=== PATIENT | male | born 1975 | race Caucasian/White ===

== ENCOUNTER 2017-06-26 12:54 | Emergency (ER) | payer OTHER ==
[~2017-06-26] VITALS: Ht 170.2 cm; Wt 97.7 kg
[2017-06-26 13:03] VITALS: TEMP 36.5; Ht 170.2 cm; Wt 97.7 kg
[2017-06-26] MEDS ORDERED: SODIUM CHLORIDE 0.9% 1000ML 1,000 ML IV STA (13:07)
--- NOTE | 2017-06-26 13:17 | EMERGENCY ROOM VISIT NOTE ---
History First contact with patient: 13:07 Chief Complaint: ABDOMINAL PAIN Stated Complaint: SEVERE ABDOMINAL PAIN History of Present Illness The patient is a 41 year old male who presents to the Emergency Room with complaints of RLQ abdominal pain. The patient also notes the following associated symptoms, nausea and vomiting, mild BAR[place], diaphoresis, and diarrhea. This started this morning at 0300 and is constant. The patient has tried zofran and phenergan relieving factors. The pain spiked to a 8 but currently is a 4/10. Pt denies LOC, fevers, chills,visual changes, neck pain, chest pain, breathing difficulties, back pain, melena, hematochezia, urinary symptoms, numbness, weakness, lymphadenopathy, rash, or other complaints. Review of Systems See HPI for pertinent positives and negatives. A total of ten systems were reviewed and were otherwise negative. Past Medical/Surgical History Surgical Problems: (1) S/P hernia repair Social History Smoking Status: Never Smoker Current/Historical Medications No Active Prescriptions or Reported Meds Physical Exam Vital Signs Date Time Temp Pulse Resp B/P (MAP) Pulse Ox O2 Delivery O2 Flow Rate FiO2 06/26/17 17:00 118 16 137/76 93 06/26/17 15:50 112 16 93 Room Air 06/26/17 14:50 108 26 138/100 93 Room Air 06/26/17 13:30 102 26 147/103 95 Room Air 06/26/17 13:28 98 06/26/17 13:03 36.5 86 16 154/106 100 Room Air Physical Exam GENERAL: Awake, alert, well-appearing, in no distress HENT: Normocephalic, atraumatic. Oropharynx unremarkable. EYES: Normal conjunctiva. Sclera non-icteric. NECK: Supple. No nuchal rigidity. FROM. No masses. RESPIRATORY: Clear to auscultation. No wheezes. No rales. Normal respiratory effort. CARDIAC: Normal rate. Normal rhythm. No murmurs. No rubs. Extremities warm and well perfused. Pulses equal. No JVD. GI: Soft, non-distended. RLQ tenderness to palpation. No rebound or guarding. No masses. RECTAL: Deferred. MUSCULOSKELETAL: Atraumatic. Chest examination reveals no tenderness. The back is symmetrical on inspection without obvious abnormality. There is no CVA tenderness to palpation. No joint edema. LOWER EXTREMITIES: Calves are equal size bilaterally and non-tender. No edema. No discoloration. NEURO: Normal sensorium. No sensory or motor deficits noted. SKIN: No rash or jaundice noted. Medical Decision & Procedures Laboratory Results 06/26/17 13:20 Red Blood Count 5.80, Mean Corpuscular Volume 86.9, Mean Corpuscular Hemoglobin 31.0, Mean Corpuscular Hemoglobin Concent 35.7, Mean Platelet Volume 9.8, Neutrophils (%) (Auto) 93.3, Lymphocytes (%) (Auto) 4.4, Monocytes (%) (Auto) 1.8, Eosinophils (%) (Auto) 0.1, Basophils (%) (Auto) 0.1, Neutrophils # (Auto) 14.62, Lymphocytes # (Auto) 0.69, Monocytes # (Auto) 0.28, Eosinophils # (Auto) 0.02, Basophils # (Auto) 0.02 06/26/17 13:20 Test 06/26/17 13:10 06/26/17 13:20 Urine Color YELLOW Urine Appearance CLEAR (CLEAR) Urine pH 5.0 (4.5-7.5) Urine Specific [place] 1.031 (1.000-1.030) Urine Protein NEG (NEG) Urine Glucose (UA) NEG (NEG) Urine Ketones TRACE (NEG) Urine Occult Blood NEG (NEG) Urine Nitrite NEG (NEG) Urine Bilirubin NEG (NEG) Urine Urobilinogen NEG (NEG) Urine Leukocyte Esterase NEG (NEG) White Blood Count 15.67 K/uL (4.8-10.8) Red Blood Count 5.80 M/uL (4.7-6.1) Hemoglobin 18.0 g/dL (14.0-18.0) Hematocrit 50.4 % (42-52) Mean Corpuscular Volume 86.9 fL (80-100) Mean Corpuscular Hemoglobin 31.0 pg (25-34) Mean Corpuscular Hemoglobin Concent 35.7 g/dl (32-36) Platelet Count 255 K/uL (130-400) Mean Platelet Volume 9.8 fL (7.4-10.4) Neutrophils (%) (Auto) 93.3 % Lymphocytes (%) (Auto) 4.4 % Monocytes (%) (Auto) 1.8 % Eosinophils (%) (Auto) 0.1 % Basophils (%) (Auto) 0.1 % Neutrophils # (Auto) 14.62 K/uL (1.4-6.5) Lymphocytes # (Auto) 0.69 K/uL (1.2-3.4) Monocytes # (Auto) 0.28 K/uL (0.11-0.59) Eosinophils # (Auto) 0.02 K/uL (0-0.5) Basophils # (Auto) 0.02 K/uL (0-0.2) RDW Standard Deviation 41.8 fL (36.4-46.3) RDW Coefficient of Variation 13.3 % (11.5-14.5) Immature Granulocyte % (Auto) 0.3 % Immature Granulocyte # (Auto) 0.04 K/uL (0.00-0.02) Anion Gap 7.0 mmol/L (3-11) Est Creatinine Clear Calc Drug Dose 82.5 ml/min Estimated GFR () 78.0 Estimated GFR (Non- 67.3 BUN/Creatinine Ratio 12.7 (10-20) Calcium Level 8.7 mg/dl (8.5-10.1) Total Bilirubin 0.6 mg/dl (0.2-1) Direct Bilirubin 0.1 mg/dl (0-0.2) Aspartate Amino Transf (AST/SGOT) 22 U/L (15-37) Alanine Aminotransferase (ALT/SGPT) 46 U/L (12-78) Alkaline Phosphatase 79 U/L (45-117) Total Protein 8.4 gm/dl (6.4-8.2) Albumin 4.3 gm/dl (3.4-5.0) Lipase 112 U/L (73-393) Medications Administered Medications (Trade) Dose Ordered Sig/[place] Route Start Time Stop Time Status Last Admin Dose Admin Sodium Chloride 1,000 ml @ 999 mls/hr Q1H1M STAT IV 06/26/17 13:07 06/26/17 14:07 DC 06/26/17 13:22 999 MLS/HR Ketorolac Tromethamine (Toradol Inj) 15 mg NOW STAT IV 06/26/17 14:36 06/26/17 14:37 DC 06/26/17 14:54 15 MG Ondansetron HCl (Zofran Inj) 4 mg NOW STAT IV 5/4/18 14:36 06/26/17 14:37 DC 06/26/17 14:53 4 MG Promethazine HCl (Phenergan 25MG Home Pack) 1 [facility] UD ONCE PO 06/26/17 17:00 06/26/17 17:01 DC 06/26/17 17:00 1 [facility] Medical Decision Triage Nursing notes reviewed. The patient's presentation and history were concerning for right sided abdominal pain. Etiologies such as appendicitis, diverticulitis, obstruction, inflammatory bowel disease, renal colic, PUD, biliary pathology, pancreatitis, mesenteric ischemia, aortic pathology, infections, genitourinary, UTI, perforated viscus, as well as others were entertained. The patient was hydrated. He was treated with IV Toradol and Zofran. He underwent CT imaging as well as blood work. He had a mild leukocytosis. His chemistry panel and urinalysis were unremarkable. The patient CT imaging did not reveal any evidence of acute findings. No renal colic. No evidence of appendicitis. He did have some fat deposition within the wall of the intestine. He does not have any history to suggest chronic inflammatory bowel issues. He did have a fatty liver. The patient was informed of these findings. He will need a GI follow-up when he returns home. He was given an oral challenge and tolerated this well. Repeat abdominal examination was benign. The patient is feeling much better. He was noted to have oxygen saturations that were mildly low but still within the normal range. He states this is not uncommon for him and typically when he rests and is lying down he requires CPAP and has saturations in the 80s from sleep apnea. The patient was mildly tachycardic but given the vomiting and diarrhea this is not unexpected. The patient desires discharge and would like to continue his travels and follow- up closely when he returns home. If he worsens he will seek care at the nearest emergency department. He was provided a copy of his laboratory studies as well as his imaging for primary follow-up. The patient seemed to have good results with the IV Zofran but also had some result with the oral Phenergan. He only took 12.5 mg. Because of this he was given a Phenergan home pack. Return instructions were explicitly outlined. The patient feels very comfortable at this point time. In light of his negative imaging and workup this seems to be consistent with a gastroenteritis as he has had vomiting and diarrhea with lower abdominal pain. I gave my usual customary discussion regarding this issue. By the evaluation outlined above other emergent etiologies such as those listed in the differential, as well as others, were deemed relatively unlikely. The patient was educated about the findings as listed above. All questions were answered and the patient was pleased with the treatment. Return instructions were outlined and the patient was discharged in stable condition. The patient was referred to his PCP when he returns home for follow-up for a recheck of the current condition. Impression Primary Impression: Nausea vomiting and diarrhea Additional Impression: Lower abdominal pain Departure Information Dispostion Home / Self-Care Prescriptions No Active Prescriptions or Reported Meds Patient Instructions My [facility] [place] Additional Instructions ABDOMINAL PAIN INSTRUCTIONS: DO NOT drive, drink alcohol, operate machinery, or perform dangerous activities today. Ibuprofen(Motrin, Advil) may be used for fever or pain. Use 600mg every six hours as needed. Take with food. Avoid using more than 2400mg in a 24 hour period. Do not use 2400mg per day for more than three consecutive days without physician direction. Prolonged inappropriate use can lead to stomach upset or ulcers. (AND/OR) Acetaminophen(Tylenol) may be used for fever or pain. Use 1000mg every six hours as needed. Avoid using more than 4000mg in a 24 hour period. Phenergan(promethazine) tablets 25mg: Take one every six hours as needed for nausea. Avoid alcohol, operating machinery or dangerous equipment, working on ladders or roofs, DRIVING, or situations where being under the influence may be dangerous. Rest and drink plenty of fluids as tolerated. Slow sips of water or sports drinks are recommended instead of large amounts all at once. Continue current medications. Once your stomach is settled start with a clear liquid diet (jello, soup broth, etc.) and then advance as tolerated. You should avoid full, heavy meals for about 24 hrs from the time your symptoms resolved. Return to the ER immediately for worsening or persistent abdominal pain, vomiting, fevers, chest pains, difficulty breathing, black or bloody stools, worsening of your condition, or as needed. Follow up with your primary physician in 2-3 days for a recheck of your current condition. Problem Qualifiers
[2017-06-26 13:27] LABS: BASO % 0.1 %; BASO ABS # 0.02 K/uL (0-0.2); EOS % 0.1 %; EOS ABS # 0.02 K/uL (0-0.5); HEMATOCRIT 50.4 % (42-52); IG# 0.04 K/uL (0.00-0.02); LYMPH % 4.4 %; LYMPH ABS # 0.69 K/uL (1.2-3.4); MEAN CELL VOLUME 86.9 fL (80-100); MEAN CORPUSCULAR HGB CONC 35.7 g/dl (32-36); MEAN PLATELET VOLUME 9.8 fL (7.4-10.4); MONO % 1.8 %; MONO ABS # 0.28 K/uL (0.11-0.59); NEUT % 93.3 %; NEUT ABS # 14.62 K/uL (1.4-6.5); PLATELET COUNT 255 K/uL (130-400); RED CELL DISTRIBUTION WIDTH CV 13.3 % (11.5-14.5); RED CELL DISTRIBUTION WIDTH SD 41.8 fL (36.4-46.3); WHITE BLOOD COUNT 15.67 K/uL (4.8-10.8)
[2017-06-26 13:44] LABS: ALBUMIN 4.3 gm/dl (3.4-5.0); CALCIUM 8.7 mg/dl (8.5-10.1); CREATININE 1.3 mg/dl (0.60-1.40); POTASSIUM 4.1 mmol/L (3.5-5.1)
[2017-06-26 13:47] LABS: TOTAL PROTEIN 8.4 gm/dl (6.4-8.2)
--- NOTE | 2017-06-26 14:01 | DIAGNOSTIC IMAGING REPORT ---
ABD/PELVIS WITHOUT FOR STONE CLINICAL HISTORY: 41 years-old Male presenting with right sided abd pain began this morning worsening over the day, right lower quadrant pain and nausea with vomiting. TECHNIQUE: Multidetector CT of the abdomen and pelvis was performed without the use of intravenous contrast. IV contrast: None. A dose lowering technique was used consistent with the principles of ALARA (as low as reasonably achievable). COMPARISON: None. CT DOSE (mGy.cm): The estimated cumulative dose is 1434.94 mGy.cm. FINDINGS: Generation [employer] Helper topogram: Coil francis project over the right lower quadrant likely indicating prior hernia repair. Lung bases: Minimal basilar opacities, likely atelectasis. Normal heart size. No pericardial or pleural effusion. Liver: Normal morphology. Density consistent with hepatic steatosis. Biliary: No gross biliary ductal dilatation allowing for noncontrast technique. Normal gallbladder. Pancreas: Mild parenchymal atrophy. Spleen: Normal noncontrast appearance. Adrenal glands: Normal noncontrast appearance. Kidneys and ureters: Normal noncontrast appearance. No nephrolithiasis. No hydronephrosis. Normal ureters. Bladder: Incompletely evaluated secondary to underdistention. Pelvic organs: Prostate and seminal vesicles normal. Small hydroceles. Bowel: Nonspecific intramural fat deposition throughout the colon. The appendix is normal. No bowel obstruction. Peritoneal cavity: No free fluid or intraperitoneal gas. Lymph nodes: No gross lymphadenopathy allowing for noncontrast technique. Vasculature: Normal noncontrast appearance. Abdominal wall: Postsurgical changes of prior right inguinal hernia repair with a surgical mesh in place. No associated fluid. Fat-containing left inguinal hernia. Left varicocele may be present. Small fat-containing umbilical hernia. Musculoskeletal: Normal. IMPRESSION: 1. Hepatic steatosis. Correlate with liver function tests to exclude steatohepatitis as a cause for abdominal pain. 2. Intramural fat deposition throughout the colon, which is a nonspecific finding and can be seen in the setting of chronic inflammation, obesity, chronic steroid use, or prior chemotherapy. 3. No other evidence of acute intra-abdominal pathology. 4. Small bilateral hydroceles. 5. Left varicocele suspected. Electronically signed by: Eliseo Sanchez M.D. 06/26/2017 1:59 PM Dictated Date/Time: 06/26/2017 1:53 PM
[2017-06-26] MEDS ORDERED: ONDANSETRON INJ 2 MG/ML 2 ML VIAL IV STA (14:36)
[2017-06-26] MEDS ORDERED: KETOROLAC TROMETHAMINE 30 MG/ML VIAL IV STA (14:36)
[2017-06-26 17:00] VITALS: BP 137/76; PULSE 118; O2SAT 93
[2017-06-26] MEDS ORDERED: PHENERGAN 25MG HOMEPACK PO ONE (17:00)
== END 2017-06-26 17:00 | disposition home or self-care (01) ==
LOC: C.EDB 12:56 → C.EDC 17:00
DX: R11.2 Nausea with vomiting, unspecified (principal); R19.7 Diarrhea, unspecified; K63.89 Other specified diseases of intestine; K76.0 Fatty (change of) liver, not elsewhere classified